=== PATIENT | male | born 1985 | race Caucasian/White ===

== ENCOUNTER 2020-12-21 10:44 | Inpatient (IN) | payer OTHER ==
[2020-12-21 11:15] VITALS: BMI 20.7
[2020-12-21] MEDS ORDERED: ACETAMINOPHEN 325 MG TABLET (FP) PO PRN (13:24)
[2020-12-21] MEDS ORDERED: guaiFENesin 200 MG/10 ML 10 ML UNIT-DOSE CUPS PO PRN (13:24)
[2020-12-21] MEDS ORDERED: LOPERAMIDE HCL 2 MG CAPSULE PO PRN (13:24)
[2020-12-21] MEDS ORDERED: P-EPHED 60MG/TRIPROLIDI 2.5MG TABLET PO PRN (13:24)
[2020-12-21] MEDS ORDERED: MAG HYDROX/AL HYDROX/SIMETH 30 ML UNIT-DOSE CUP PO PRN (13:24)
[2020-12-21] MEDS ORDERED: MAGNESIUM HYDROX 2400MG/30ML ORAL SUSPENSION 30 ML CUP PO PRN (13:24)
[2020-12-21] MEDS ORDERED: MAGNESIUM CITRATE 300 ML BOTTLE PO PRN (13:24)
[2020-12-21] MEDS ORDERED: ALBUTEROL SO4 HFA INHALER IH PRN (13:29)
[2020-12-21] MEDS: BUPRENORPHINE/NALOXONE 8 MG/2 MG FILM PACKET SL SCH ×2 (14:39→22:05)
[2020-12-21] MEDS ORDERED: PT OWN MED DRAWER 7, Y5N ONE (20:52)
[2020-12-21] MEDS: MELATONIN 5 MG TABLETS PO SCH (22:05)
[2020-12-21] MEDS: THIAMINE HCL 100 MG TABLET (FP) PO SCH (22:05)
[2020-12-21] MEDS: hydrOXYzine PAMOATE 25 MG CAPSULE (FP) PO PRN (22:05)
[2020-12-22] MEDS: BUPRENORPHINE/NALOXONE 8 MG/2 MG FILM PACKET SL SCH ×3 (06:39→21:42)
[2020-12-22] MEDS: NICOTINE 10 MG CARTRIDGE (INHALER) IH PRN (07:44)
[2020-12-22] MEDS: buPROPion HCL 75 MG TABLET PO SCH (10:21)
[2020-12-22] MEDS: PRENATAL VITAMINS W/ FOLIC ACID TABLET (FP) PO SCH (10:22)
[2020-12-22] MEDS: NICOTINE 7 MG/24 HOURS TOPICAL PATCH TD SCH (10:22)
[2020-12-22 16:45] LABS: EPI CELLS 16 /uL (0-25.1); HYALINE CASTS 3 /uL (0-3.1); URINE APPEARANCE CLEAR; URINE BACTERIA 47 /uL (0-1359); URINE BILIRUBIN NEGATIVE (NEGATIVE); URINE COLOR DK YELLOW; URINE GLUCOSE (UA) NEGATIVE (NEGATIVE); URINE KETONE TRACE (NEGATIVE); URINE LEUK ESTERASE 1+ (NEGATIVE); URINE NITRITE NEGATIVE (NEGATIVE); URINE PROTEIN NEGATIVE (NEGATIVE); URINE RBC 2 /uL (0-23.9); URINE UROBILINOGEN 0.2 mg/dL (0.2-1.0); URINE WBC 47 /uL (0-25.8)
[2020-12-22] MEDS: THIAMINE HCL 100 MG TABLET (FP) PO SCH (21:41)
[2020-12-22] MEDS: hydrOXYzine PAMOATE 25 MG CAPSULE (FP) PO PRN (21:41)
[2020-12-22] MEDS: MELATONIN 5 MG TABLETS PO SCH (21:41)
[2020-12-23] MEDS: NICOTINE 10 MG CARTRIDGE (INHALER) IH PRN (06:43)
[2020-12-23] MEDS: BUPRENORPHINE/NALOXONE 8 MG/2 MG FILM PACKET SL SCH ×3 (06:43→21:20)
[2020-12-23] MEDS ORDERED: ACETAMINOPHEN 325 MG TABLET (FP) ONE (06:45)
[2020-12-23] MEDS: PRENATAL VITAMINS W/ FOLIC ACID TABLET (FP) PO SCH (09:41)
[2020-12-23] MEDS: NICOTINE 7 MG/24 HOURS TOPICAL PATCH TD SCH (09:44)
[2020-12-23] MEDS: buPROPion HCL 75 MG TABLET PO SCH (10:07)
[2020-12-23] MEDS: hydrOXYzine PAMOATE 25 MG CAPSULE (FP) PO PRN (21:19)
[2020-12-23] MEDS: MELATONIN 5 MG TABLETS PO SCH (21:20)
[2020-12-23] MEDS: THIAMINE HCL 100 MG TABLET (FP) PO SCH (21:20)
[2020-12-24] MEDS: BUPRENORPHINE/NALOXONE 8 MG/2 MG FILM PACKET SL SCH ×3 (06:23→21:34)
[2020-12-24] MEDS: NICOTINE 10 MG CARTRIDGE (INHALER) IH PRN ×2 (06:58→21:34)
[2020-12-24] MEDS: buPROPion HCL 75 MG TABLET PO SCH (09:31)
[2020-12-24] MEDS: PRENATAL VITAMINS W/ FOLIC ACID TABLET (FP) PO SCH (09:31)
[2020-12-24] MEDS: NICOTINE 7 MG/24 HOURS TOPICAL PATCH TD SCH (09:31)
[2020-12-24] MEDS: IBUPROFEN 400 MG TABLET (FP) PO PRN (11:09)
[2020-12-24] MEDS: hydrOXYzine PAMOATE 25 MG CAPSULE (FP) PO PRN (11:09)
[2020-12-24 11:38] LABS: URINE APPEARANCE CLEAR; URINE BILIRUBIN NEGATIVE (NEGATIVE); URINE COLOR YELLOW; URINE GLUCOSE (UA) NEGATIVE (NEGATIVE); URINE KETONE NEGATIVE (NEGATIVE); URINE LEUK ESTERASE NEGATIVE (NEGATIVE); URINE NITRITE NEGATIVE (NEGATIVE); URINE PROTEIN NEGATIVE (NEGATIVE); URINE UROBILINOGEN 0.2 mg/dL (0.2-1.0)
[2020-12-24] MEDS: MELATONIN 5 MG TABLETS PO SCH (21:34)
[2020-12-24] MEDS: THIAMINE HCL 100 MG TABLET (FP) PO SCH (21:34)
[2020-12-25] MEDS: BUPRENORPHINE/NALOXONE 8 MG/2 MG FILM PACKET SL SCH ×3 (06:22→21:07)
[2020-12-25] MEDS: NICOTINE 7 MG/24 HOURS TOPICAL PATCH TD SCH (10:09)
[2020-12-25] MEDS: PRENATAL VITAMINS W/ FOLIC ACID TABLET (FP) PO SCH (10:09)
[2020-12-25] MEDS: buPROPion HCL 75 MG TABLET PO SCH (10:10)
[2020-12-25] MEDS: NICOTINE 10 MG CARTRIDGE (INHALER) IH PRN (17:31)
[2020-12-25] MEDS: MELATONIN 5 MG TABLETS PO SCH (21:06)
[2020-12-25] MEDS: THIAMINE HCL 100 MG TABLET (FP) PO SCH (21:06)
[2020-12-26] MEDS: NICOTINE 10 MG CARTRIDGE (INHALER) IH PRN ×2 (06:46→16:39)
[2020-12-26] MEDS: BUPRENORPHINE/NALOXONE 8 MG/2 MG FILM PACKET SL SCH ×3 (06:46→21:02)
[2020-12-26] MEDS ORDERED: MASKS NR ONE (08:54)
[2020-12-26] MEDS ORDERED: PT OWN MED DRAWER 7, Y5N ONE (08:58)
[2020-12-26] MEDS: NICOTINE 7 MG/24 HOURS TOPICAL PATCH TD SCH (09:33)
[2020-12-26] MEDS: buPROPion HCL 75 MG TABLET PO SCH (09:33)
[2020-12-26] MEDS: PRENATAL VITAMINS W/ FOLIC ACID TABLET (FP) PO SCH (09:33)
[2020-12-26 10:14] LABS: HEMATOCRIT 40.5 % (35.4-49); HEMOGLOBIN 13.1 GM/dL (11.7-16.9); MCH 24.1 pg (25.7-33.7); MCHC 32.4 g/dl (32.0-35.9); MEAN CELL VOLUME 74.3 fl (80-96); MEAN PLT VOLUME 9.1 fl (7.5-11.1); PLATELET COUNT 212 10^3/uL (134-434); RBC 5.45 M/mm3 (4.00-5.60); RDW 15.6 % (11.9-15.9); WHITE BLOOD COUNT 5.2 K/mm3 (4.0-10.0)
[2020-12-26 10:44] LABS: ALBUMIN 4.6 g/dl (3.4-5.0); BLOOD UREA NITROGEN 16.2 mg/dL (7-18); CALCIUM 9.4 mg/dL (8.5-10.1)
[2020-12-26 10:45] LABS: BILIRUBIN,TOTAL 0.4 mg/dL (0.2-1); TOT PROT 8.1 g/dl (6.4-8.2)
[2020-12-26 10:47] LABS: CREATININE 0.7 mg/dL (0.55-1.3)
[2020-12-26] MEDS: THIAMINE HCL 100 MG TABLET (FP) PO SCH (21:01)
[2020-12-26] MEDS: MELATONIN 5 MG TABLETS PO SCH (21:01)
[2020-12-27] MEDS: BUPRENORPHINE/NALOXONE 8 MG/2 MG FILM PACKET SL SCH ×3 (06:54→22:25)
[2020-12-27] MEDS: NICOTINE 10 MG CARTRIDGE (INHALER) IH PRN ×2 (06:54→14:08)
[2020-12-27] MEDS ORDERED: PT OWN MED DRAWER 7, Y5N ONE (08:50)
[2020-12-27] MEDS: NICOTINE 7 MG/24 HOURS TOPICAL PATCH TD SCH (09:53)
[2020-12-27] MEDS: buPROPion HCL 75 MG TABLET PO SCH (09:53)
[2020-12-27] MEDS: PRENATAL VITAMINS W/ FOLIC ACID TABLET (FP) PO SCH (09:53)
[2020-12-27] MEDS ORDERED: TUBERCULIN PPD 5 TU/0.1ML VIAL ID ONE ×2 (20:01→22:29)
[2020-12-27] MEDS: MELATONIN 5 MG TABLETS PO SCH (22:25)
[2020-12-27] MEDS: THIAMINE HCL 100 MG TABLET (FP) PO SCH (22:26)
[2020-12-28] MEDS: NICOTINE 10 MG CARTRIDGE (INHALER) IH PRN (06:18)
[2020-12-28] MEDS: BUPRENORPHINE/NALOXONE 8 MG/2 MG FILM PACKET SL SCH ×3 (06:18→21:25)
[2020-12-28] MEDS: NICOTINE 7 MG/24 HOURS TOPICAL PATCH TD SCH (09:36)
[2020-12-28] MEDS: PRENATAL VITAMINS W/ FOLIC ACID TABLET (FP) PO SCH (09:43)
[2020-12-28] MEDS: buPROPion HCL 75 MG TABLET PO SCH (09:44)
[2020-12-28] MEDS: MELATONIN 5 MG TABLETS PO SCH (21:23)
[2020-12-28] MEDS: THIAMINE HCL 100 MG TABLET (FP) PO SCH (21:23)
[2020-12-28] MEDS: IBUPROFEN 400 MG TABLET (FP) PO PRN (21:25)
[2020-12-29] MEDS: BUPRENORPHINE/NALOXONE 8 MG/2 MG FILM PACKET SL SCH ×3 (06:10→21:34)
[2020-12-29] MEDS: NICOTINE 10 MG CARTRIDGE (INHALER) IH PRN (06:10)
[2020-12-29] MEDS ORDERED: PT OWN MED DRAWER 7, Y5N ONE (08:43)
[2020-12-29] MEDS: buPROPion HCL 75 MG TABLET PO SCH (11:21)
[2020-12-29] MEDS: NICOTINE 7 MG/24 HOURS TOPICAL PATCH TD SCH (11:21)
[2020-12-29] MEDS: PRENATAL VITAMINS W/ FOLIC ACID TABLET (FP) PO SCH (11:21)
[2020-12-29] MEDS: MELATONIN 5 MG TABLETS PO SCH (21:32)
[2020-12-29] MEDS: THIAMINE HCL 100 MG TABLET (FP) PO SCH (21:32)
[2020-12-29] MEDS: IBUPROFEN 400 MG TABLET (FP) PO PRN (21:33)
[2020-12-30] MEDS: BUPRENORPHINE/NALOXONE 8 MG/2 MG FILM PACKET SL SCH ×3 (07:03→21:28)
[2020-12-30] MEDS: NICOTINE 10 MG CARTRIDGE (INHALER) IH PRN (07:03)
[2020-12-30] MEDS: buPROPion HCL 75 MG TABLET PO SCH (09:42)
[2020-12-30] MEDS: PRENATAL VITAMINS W/ FOLIC ACID TABLET (FP) PO SCH (09:42)
[2020-12-30] MEDS: NICOTINE 7 MG/24 HOURS TOPICAL PATCH TD SCH (09:43)
[2020-12-30] MEDS: MELATONIN 5 MG TABLETS PO SCH (21:28)
[2020-12-30] MEDS: IBUPROFEN 400 MG TABLET (FP) PO PRN (21:29)
[2020-12-30] MEDS: THIAMINE HCL 100 MG TABLET (FP) PO SCH (21:31)
[2020-12-31] MEDS: BUPRENORPHINE/NALOXONE 8 MG/2 MG FILM PACKET SL SCH ×3 (06:26→21:19)
[2020-12-31] MEDS: NICOTINE 10 MG CARTRIDGE (INHALER) IH PRN (09:48)
[2020-12-31] MEDS: NICOTINE 7 MG/24 HOURS TOPICAL PATCH TD SCH (09:49)
[2020-12-31] MEDS: buPROPion HCL 75 MG TABLET PO SCH (09:49)
[2020-12-31] MEDS: PRENATAL VITAMINS W/ FOLIC ACID TABLET (FP) PO SCH (09:49)
[2020-12-31] MEDS: IBUPROFEN 400 MG TABLET (FP) PO PRN ×2 (09:51→21:19)
[2020-12-31] MEDS: MELATONIN 5 MG TABLETS PO SCH (21:19)
[2020-12-31] MEDS: THIAMINE HCL 100 MG TABLET (FP) PO SCH (21:19)
[2021-01-01] MEDS: BUPRENORPHINE/NALOXONE 8 MG/2 MG FILM PACKET SL SCH ×3 (06:08→21:38)
[2021-01-01] MEDS: NICOTINE 10 MG CARTRIDGE (INHALER) IH PRN (06:09)
[2021-01-01] MEDS: PRENATAL VITAMINS W/ FOLIC ACID TABLET (FP) PO SCH (10:08)
[2021-01-01] MEDS: NICOTINE 7 MG/24 HOURS TOPICAL PATCH TD SCH (10:08)
[2021-01-01] MEDS: buPROPion HCL 75 MG TABLET PO SCH (11:55)
[2021-01-01] MEDS: THIAMINE HCL 100 MG TABLET (FP) PO SCH (21:37)
[2021-01-01] MEDS: MELATONIN 5 MG TABLETS PO SCH (21:37)
[2021-01-01] MEDS: IBUPROFEN 400 MG TABLET (FP) PO PRN (21:38)
[2021-01-02] MEDS: NICOTINE 10 MG CARTRIDGE (INHALER) IH PRN ×3 (07:10→21:08)
[2021-01-02] MEDS: BUPRENORPHINE/NALOXONE 8 MG/2 MG FILM PACKET SL SCH ×3 (07:10→21:09)
[2021-01-02] MEDS ORDERED: PT OWN MED DRAWER 7, Y5N ONE (09:00)
[2021-01-02] MEDS: PRENATAL VITAMINS W/ FOLIC ACID TABLET (FP) PO SCH (10:21)
[2021-01-02] MEDS: NICOTINE 7 MG/24 HOURS TOPICAL PATCH TD SCH (10:22)
[2021-01-02] MEDS: buPROPion HCL 75 MG TABLET PO SCH (10:22)
[2021-01-02] MEDS: MELATONIN 5 MG TABLETS PO SCH (21:09)
[2021-01-02] MEDS: THIAMINE HCL 100 MG TABLET (FP) PO SCH (21:09)
[2021-01-02] MEDS: IBUPROFEN 400 MG TABLET (FP) PO PRN (21:10)
[2021-01-03] MEDS: BUPRENORPHINE/NALOXONE 8 MG/2 MG FILM PACKET SL SCH ×3 (06:12→21:06)
[2021-01-03] MEDS ORDERED: PT OWN MED DRAWER 7, Y5N ONE (09:04)
[2021-01-03] MEDS: IBUPROFEN 400 MG TABLET (FP) PO PRN ×2 (09:33→21:05)
[2021-01-03] MEDS: NICOTINE 7 MG/24 HOURS TOPICAL PATCH TD SCH (09:34)
[2021-01-03] MEDS: buPROPion HCL 75 MG TABLET PO SCH (09:34)
[2021-01-03] MEDS: NICOTINE 10 MG CARTRIDGE (INHALER) IH PRN ×2 (09:34→21:04)
[2021-01-03] MEDS: PRENATAL VITAMINS W/ FOLIC ACID TABLET (FP) PO SCH (09:34)
[2021-01-03] MEDS: COLLOIDAL OATMEAL 1 BAR EACH TP PRN (13:05)
[2021-01-03] MEDS: hydrOXYzine PAMOATE 25 MG CAPSULE (FP) PO PRN (21:04)
[2021-01-03] MEDS: MELATONIN 5 MG TABLETS PO SCH (21:04)
[2021-01-03] MEDS: THIAMINE HCL 100 MG TABLET (FP) PO SCH (21:04)
[2021-01-04] MEDS: BUPRENORPHINE/NALOXONE 8 MG/2 MG FILM PACKET SL SCH ×3 (06:43→21:18)
[2021-01-04] MEDS: NICOTINE 10 MG CARTRIDGE (INHALER) IH PRN ×3 (06:43→21:20)
[2021-01-04] MEDS: PRENATAL VITAMINS W/ FOLIC ACID TABLET (FP) PO SCH (09:44)
[2021-01-04] MEDS: IBUPROFEN 400 MG TABLET (FP) PO PRN ×2 (09:44→21:17)
[2021-01-04] MEDS: buPROPion HCL 75 MG TABLET PO SCH (09:44)
[2021-01-04] MEDS: NICOTINE 7 MG/24 HOURS TOPICAL PATCH TD SCH (09:44)
[2021-01-04] MEDS ORDERED: PT OWN MED DRAWER 7, Y5N ONE (10:14)
[2021-01-04] MEDS: THIAMINE HCL 100 MG TABLET (FP) PO SCH (21:18)
[2021-01-04] MEDS: MELATONIN 5 MG TABLETS PO SCH (21:19)
[2021-01-05] MEDS: BUPRENORPHINE/NALOXONE 8 MG/2 MG FILM PACKET SL SCH ×3 (06:37→21:09)
[2021-01-05] MEDS: NICOTINE 10 MG CARTRIDGE (INHALER) IH PRN (07:59)
[2021-01-05] MEDS: PRENATAL VITAMINS W/ FOLIC ACID TABLET (FP) PO SCH (09:33)
[2021-01-05] MEDS: buPROPion HCL 75 MG TABLET PO SCH (09:33)
[2021-01-05] MEDS: IBUPROFEN 400 MG TABLET (FP) PO PRN ×2 (09:34→21:10)
[2021-01-05] MEDS: NICOTINE 7 MG/24 HOURS TOPICAL PATCH TD SCH (09:35)
[2021-01-05] MEDS: MELATONIN 5 MG TABLETS PO SCH (21:09)
[2021-01-05] MEDS: THIAMINE HCL 100 MG TABLET (FP) PO SCH (21:11)
[2021-01-06] MEDS: BUPRENORPHINE/NALOXONE 8 MG/2 MG FILM PACKET SL SCH ×3 (06:35→21:09)
[2021-01-06] MEDS: NICOTINE 10 MG CARTRIDGE (INHALER) IH PRN (06:38)
[2021-01-06] MEDS: NICOTINE 7 MG/24 HOURS TOPICAL PATCH TD SCH (09:21)
[2021-01-06] MEDS: IBUPROFEN 400 MG TABLET (FP) PO PRN ×2 (09:21→21:10)
[2021-01-06] MEDS: buPROPion HCL 75 MG TABLET PO SCH (09:22)
[2021-01-06] MEDS: PRENATAL VITAMINS W/ FOLIC ACID TABLET (FP) PO SCH (09:22)
[2021-01-06] MEDS: COLLOIDAL OATMEAL 1 BAR EACH TP PRN (13:06)
[2021-01-06] MEDS: THIAMINE HCL 100 MG TABLET (FP) PO SCH (21:09)
[2021-01-06] MEDS: hydrOXYzine PAMOATE 25 MG CAPSULE (FP) PO PRN (21:09)
[2021-01-06] MEDS: MELATONIN 5 MG TABLETS PO SCH (21:09)
[2021-01-07] MEDS: BUPRENORPHINE/NALOXONE 8 MG/2 MG FILM PACKET SL SCH ×3 (06:20→21:17)
[2021-01-07] MEDS: NICOTINE 10 MG CARTRIDGE (INHALER) IH PRN ×3 (06:20→21:18)
[2021-01-07] MEDS: buPROPion HCL 75 MG TABLET PO SCH (09:50)
[2021-01-07] MEDS: PRENATAL VITAMINS W/ FOLIC ACID TABLET (FP) PO SCH (09:50)
[2021-01-07] MEDS: NICOTINE 7 MG/24 HOURS TOPICAL PATCH TD SCH (09:50)
[2021-01-07] MEDS: IBUPROFEN 400 MG TABLET (FP) PO PRN ×2 (09:51→21:15)
[2021-01-07] MEDS: SUVOREXANT 10 MG TABLET PO PRN (21:15)
[2021-01-07] MEDS: THIAMINE HCL 100 MG TABLET (FP) PO SCH (21:17)
[2021-01-08] MEDS: BUPRENORPHINE/NALOXONE 8 MG/2 MG FILM PACKET SL SCH ×3 (06:16→21:21)
[2021-01-08] MEDS: NICOTINE 10 MG CARTRIDGE (INHALER) IH PRN (06:17)
[2021-01-08] MEDS: PRENATAL VITAMINS W/ FOLIC ACID TABLET (FP) PO SCH (09:29)
[2021-01-08] MEDS: buPROPion HCL 75 MG TABLET PO SCH (09:29)
[2021-01-08] MEDS: IBUPROFEN 400 MG TABLET (FP) PO PRN ×2 (09:30→21:21)
[2021-01-08] MEDS: hydrOXYzine PAMOATE 25 MG CAPSULE (FP) PO PRN ×2 (09:30→21:21)
[2021-01-08] MEDS: NICOTINE 7 MG/24 HOURS TOPICAL PATCH TD SCH (10:00)
[2021-01-08] MEDS: SUVOREXANT 10 MG TABLET PO PRN (21:20)
[2021-01-08] MEDS: THIAMINE HCL 100 MG TABLET (FP) PO SCH (21:21)
[2021-01-09] MEDS: BUPRENORPHINE/NALOXONE 8 MG/2 MG FILM PACKET SL SCH ×3 (06:06→21:48)
[2021-01-09] MEDS: buPROPion HCL 75 MG TABLET PO SCH (09:54)
[2021-01-09] MEDS: PRENATAL VITAMINS W/ FOLIC ACID TABLET (FP) PO SCH (09:54)
[2021-01-09] MEDS: NICOTINE 10 MG CARTRIDGE (INHALER) IH PRN ×2 (09:55→21:49)
[2021-01-09] MEDS: NICOTINE 7 MG/24 HOURS TOPICAL PATCH TD SCH (09:56)
[2021-01-09] MEDS: IBUPROFEN 400 MG TABLET (FP) PO PRN (21:48)
[2021-01-09] MEDS: THIAMINE HCL 100 MG TABLET (FP) PO SCH (21:48)
[2021-01-09] MEDS: SUVOREXANT 15 MG TABLET PO PRN (21:48)
[2021-01-10] MEDS: NICOTINE 10 MG CARTRIDGE (INHALER) IH PRN ×2 (06:20→21:10)
[2021-01-10] MEDS: BUPRENORPHINE/NALOXONE 8 MG/2 MG FILM PACKET SL SCH ×3 (06:20→21:07)
[2021-01-10] MEDS: buPROPion HCL 75 MG TABLET PO SCH (09:06)
[2021-01-10] MEDS: IBUPROFEN 400 MG TABLET (FP) PO PRN ×2 (09:06→21:08)
[2021-01-10] MEDS: PRENATAL VITAMINS W/ FOLIC ACID TABLET (FP) PO SCH (09:06)
[2021-01-10] MEDS: NICOTINE 7 MG/24 HOURS TOPICAL PATCH TD SCH (09:07)
[2021-01-10] MEDS: SUVOREXANT 15 MG TABLET PO PRN (21:07)
[2021-01-10] MEDS: hydrOXYzine PAMOATE 25 MG CAPSULE (FP) PO PRN (21:07)
[2021-01-10] MEDS: THIAMINE HCL 100 MG TABLET (FP) PO SCH (21:07)
[2021-01-11] MEDS: BUPRENORPHINE/NALOXONE 8 MG/2 MG FILM PACKET SL SCH ×3 (06:44→21:20)
[2021-01-11] MEDS: NICOTINE 10 MG CARTRIDGE (INHALER) IH PRN ×2 (06:45→14:21)
[2021-01-11] MEDS: NICOTINE 7 MG/24 HOURS TOPICAL PATCH TD SCH (09:27)
[2021-01-11] MEDS: buPROPion HCL 75 MG TABLET PO SCH (09:27)
[2021-01-11] MEDS: PRENATAL VITAMINS W/ FOLIC ACID TABLET (FP) PO SCH (09:27)
[2021-01-11] MEDS: IBUPROFEN 400 MG TABLET (FP) PO PRN ×2 (09:28→21:19)
[2021-01-11] MEDS: hydrOXYzine PAMOATE 25 MG CAPSULE (FP) PO PRN ×2 (09:28→21:19)
[2021-01-11] MEDS: THIAMINE HCL 100 MG TABLET (FP) PO SCH (21:19)
[2021-01-11] MEDS: SUVOREXANT 15 MG TABLET PO PRN (21:21)
[2021-01-11] MEDS: COLLOIDAL OATMEAL 1 BAR EACH TP PRN (21:22)
[2021-01-12] MEDS: NICOTINE 10 MG CARTRIDGE (INHALER) IH PRN (06:34)
[2021-01-12] MEDS: BUPRENORPHINE/NALOXONE 8 MG/2 MG FILM PACKET SL SCH ×3 (06:34→21:21)
[2021-01-12] MEDS: hydrOXYzine PAMOATE 25 MG CAPSULE (FP) PO PRN ×2 (09:18→21:21)
[2021-01-12] MEDS: IBUPROFEN 400 MG TABLET (FP) PO PRN ×2 (09:19→21:21)
[2021-01-12] MEDS: NICOTINE 7 MG/24 HOURS TOPICAL PATCH TD SCH (09:19)
[2021-01-12] MEDS: PRENATAL VITAMINS W/ FOLIC ACID TABLET (FP) PO SCH (09:19)
[2021-01-12] MEDS: buPROPion HCL 75 MG TABLET PO SCH (09:19)
[2021-01-12] MEDS: SUVOREXANT 15 MG TABLET PO PRN (21:20)
[2021-01-12] MEDS: THIAMINE HCL 100 MG TABLET (FP) PO SCH (21:21)
[2021-01-13] MEDS: BUPRENORPHINE/NALOXONE 8 MG/2 MG FILM PACKET SL SCH ×3 (06:05→21:59)
[2021-01-13] MEDS: NICOTINE 10 MG CARTRIDGE (INHALER) IH PRN ×2 (06:05→22:01)
[2021-01-13] MEDS: hydrOXYzine PAMOATE 25 MG CAPSULE (FP) PO PRN (09:43)
[2021-01-13] MEDS: PRENATAL VITAMINS W/ FOLIC ACID TABLET (FP) PO SCH (09:43)
[2021-01-13] MEDS: COLLOIDAL OATMEAL 1 BAR EACH TP PRN (09:43)
[2021-01-13] MEDS: buPROPion HCL 75 MG TABLET PO SCH (09:43)
[2021-01-13] MEDS: IBUPROFEN 400 MG TABLET (FP) PO PRN ×2 (09:43→21:56)
[2021-01-13] MEDS: NICOTINE 7 MG/24 HOURS TOPICAL PATCH TD SCH (09:43)
[2021-01-13] MEDS: LIDOCAINE 5% TOPICAL PATCH TP SCH (15:58)
[2021-01-13] MEDS: SUVOREXANT 5 MG TABLET PO PRN (21:57)
[2021-01-13] MEDS: THIAMINE HCL 100 MG TABLET (FP) PO SCH (21:59)
[2021-01-13] MEDS: LIDOCAINE PATCH REMOVAL MC SCH (21:59)
[2021-01-14] MEDS: NICOTINE 10 MG CARTRIDGE (INHALER) IH PRN ×3 (06:37→21:04)
[2021-01-14] MEDS: BUPRENORPHINE/NALOXONE 8 MG/2 MG FILM PACKET SL SCH ×3 (06:38→21:03)
[2021-01-14] MEDS: buPROPion HCL 75 MG TABLET PO SCH (10:17)
[2021-01-14] MEDS: LIDOCAINE 5% TOPICAL PATCH TP SCH (10:17)
[2021-01-14] MEDS: PRENATAL VITAMINS W/ FOLIC ACID TABLET (FP) PO SCH (10:17)
[2021-01-14] MEDS: NICOTINE 7 MG/24 HOURS TOPICAL PATCH TD SCH (10:18)
[2021-01-14] MEDS: hydrOXYzine PAMOATE 25 MG CAPSULE (FP) PO PRN ×2 (10:18→21:03)
[2021-01-14] MEDS: IBUPROFEN 400 MG TABLET (FP) PO PRN ×2 (10:18→21:02)
[2021-01-14] MEDS: SUVOREXANT 5 MG TABLET PO PRN (21:01)
[2021-01-14] MEDS: THIAMINE HCL 100 MG TABLET (FP) PO SCH (21:02)
[2021-01-14] MEDS: LIDOCAINE PATCH REMOVAL MC SCH (21:04)
[2021-01-15] MEDS: BUPRENORPHINE/NALOXONE 8 MG/2 MG FILM PACKET SL SCH ×3 (06:05→21:44)
[2021-01-15] MEDS: NICOTINE 10 MG CARTRIDGE (INHALER) IH PRN ×2 (06:06→13:13)
[2021-01-15] MEDS: PRENATAL VITAMINS W/ FOLIC ACID TABLET (FP) PO SCH (10:37)
[2021-01-15] MEDS: hydrOXYzine PAMOATE 25 MG CAPSULE (FP) PO PRN ×2 (10:40→21:43)
[2021-01-15] MEDS: IBUPROFEN 400 MG TABLET (FP) PO PRN ×2 (10:40→21:43)
[2021-01-15] MEDS: buPROPion HCL 75 MG TABLET PO SCH (10:40)
[2021-01-15] MEDS: COLLOIDAL OATMEAL 1 BAR EACH TP PRN (10:40)
[2021-01-15] MEDS: NICOTINE 7 MG/24 HOURS TOPICAL PATCH TD SCH (10:42)
[2021-01-15] MEDS: LIDOCAINE 5% TOPICAL PATCH TP SCH (11:00)
[2021-01-15] MEDS: THIAMINE HCL 100 MG TABLET (FP) PO SCH (21:43)
[2021-01-15] MEDS: SUVOREXANT 5 MG TABLET PO PRN (21:45)
[2021-01-15] MEDS: LIDOCAINE PATCH REMOVAL MC SCH (21:47)
[2021-01-16] MEDS: BUPRENORPHINE/NALOXONE 8 MG/2 MG FILM PACKET SL SCH ×3 (06:20→21:31)
[2021-01-16] MEDS: NICOTINE 10 MG CARTRIDGE (INHALER) IH PRN ×2 (06:22→21:33)
[2021-01-16] MEDS: NICOTINE 7 MG/24 HOURS TOPICAL PATCH TD SCH (09:24)
[2021-01-16] MEDS: PRENATAL VITAMINS W/ FOLIC ACID TABLET (FP) PO SCH (09:24)
[2021-01-16] MEDS: buPROPion HCL 75 MG TABLET PO SCH (09:24)
[2021-01-16] MEDS: LIDOCAINE 5% TOPICAL PATCH TP SCH (09:24)
[2021-01-16] MEDS: hydrOXYzine PAMOATE 25 MG CAPSULE (FP) PO PRN ×2 (09:25→21:32)
[2021-01-16] MEDS: IBUPROFEN 400 MG TABLET (FP) PO PRN ×2 (09:25→21:31)
[2021-01-16] MEDS: LIDOCAINE PATCH REMOVAL MC SCH (21:26)
[2021-01-16] MEDS: SUVOREXANT 5 MG TABLET PO PRN (21:29)
[2021-01-16] MEDS: THIAMINE HCL 100 MG TABLET (FP) PO SCH (21:31)
[2021-01-17] MEDS: BUPRENORPHINE/NALOXONE 8 MG/2 MG FILM PACKET SL SCH (06:16)
[2021-01-17 06:44] VITALS: BP 113/72; PULSE 72; TEMP 97.7
== END 2021-01-17 06:53 | disposition home or self-care (01) | DRG 772 ==
LOC: YASAS 10:44 → Y3E 13:14
PROVIDERS: ADMIT Allergy & Immunology; ATTEND Allergy & Immunology
PROC: HZ42ZZZ Group Counseling for Substance Abuse Treatment, Cognitive-Behavioral (ICD-10-PCS; principal; 2020-12-21)
DX: F11.20 Opioid dependence, uncomplicated (principal); F16.20 Hallucinogen dependence, uncomplicated; F17.210 Nicotine dependence, cigarettes, uncomplicated; F19.24 Other psychoactive substance dependence with psychoactive substance-induced mood disorder; F19.282 Other psychoactive substance dependence with psychoactive substance-induced sleep disorder; F19.280 Other psychoactive substance dependence with psychoactive substance-induced anxiety disorder; F90.9 Attention-deficit hyperactivity disorder, unspecified type; F31.9 Bipolar disorder, unspecified; R63.4 Abnormal weight loss; J45.909 Unspecified asthma, uncomplicated; Z91.19 Patient's noncompliance with other medical treatment and regimen; Z91.013 Allergy to seafood; Z56.0 Unemployment, unspecified; Z59.01 Sheltered homelessness
CPT/HCPCS: 36415; 80053; 81003; 85027; 86780; 87811; 93005; 93010; C9803; U0003; U0005